=== PATIENT | female | born 1955 | race Caucasian/White ===

== ENCOUNTER 2021-02-28 03:01 | Inpatient (IN) | payer MEDICAID ==
[~2021-02-28] VITALS: Ht 160 cm; Wt 63.5 kg
[2021-02-28] MEDS ORDERED: ONDANSETRON HCL/PF 4 MG/2 ML VIAL ONE (03:23)
[2021-02-28] MEDS ORDERED: MORPHINE SULFATE INJ 4 MG/ML DISP.SYRIN ONE (03:23)
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
[2021-02-28] MEDS ORDERED: MORPHINE SULFATE INJ 2 MG/ML DISP.SYRIN IV ONE (03:30)
[2021-02-28] MEDS ORDERED: IV NS 0.9% 500 ML BAG IV ONE (03:30)
[2021-02-28] MEDS ORDERED: ONDANSETRON HCL/PF 4 MG/2 ML VIAL IVP ONE (03:30)
[2021-02-28] MEDS ORDERED: IV NS 0.9% 250 ML IV ONE (03:53)
[2021-02-28] MEDS ORDERED: IOHEXOL-300 100 ML VIAL IV ONE (03:53)
--- NOTE | 2021-02-28 04:07 | NUR ---
[phone] GRANDSON CALL FOR CUTTER GRIND TOOL TECHNICIAN "PRINCE"
[2021-02-28 04:10] LABS: CALCIUM, SERUM 8.2 mg/dL (8.5-10.1); POTASSIUM 3.6 mmol/L (3.5-5.1)
[2021-02-28 04:25] LABS: ALBUMIN 3.9 g/dL (3.4-5.0); BILIRUBIN,DIRECT 0.1 mg/dL (0.0-0.2); BILIRUBIN,TOTAL 0.3 mg/dL (0.2-1.0)
--- NOTE | 2021-02-28 05:48 | NUR ---
ASHLEY DSOUZA PAGED FOR PANEL
--- NOTE | 2021-02-28 05:58 | NUR ---
MRSA SWAB COLLECTED AND SENT TO LAB. PATIENT'S BELONGINGS LIST DONE.
--- NOTE | 2021-02-28 06:02 | NUR ---
COVID SWAB COLLECTED AND SENT TO LAB
[2021-02-28 07:00] LABS: BASOPHILS # (AUTO) 0.1 K/uL (0.0-0.2); BASOPHILS % (AUTO) 0.6 % (0.0-2.0); EOSINOPHILS % (AUTO) 2.7 % (0.0-6.0); HEMATOCRIT 36 % (33-45); HEMOGLOBIN 11.6 g/dL (11.5-14.8); LYMPHOCYTES % (AUTO) 39.5 % (20.0-44.0); MEAN CORPUSCULAR HGB CONC 33 g/dl (31.0-36.0); MEAN CORPUSCULAR VOLUME 90 fL (82-100); MONOCYTES # (AUTO) 0.8 K/uL (0.1-1.30); MONOCYTES % (AUTO) 7.6 % (2.0-12.0); NEUTROPHILS % (AUTO) 49.6 % (43.0-81.0); PLATELET COUNT (AUTO) 309 K/uL (150-450); RED BLOOD CELL COUNT(AUTO) 3.95 MIL/uL (4.0-5.2); WHITE BLOOD COUNT (AUTO) 10.1 K/uL (4.3-11.0)
[2021-02-28] MEDS ORDERED: ZOLPIDEM TARTRATE 5 MG TABLET PO PRN (07:00)
[2021-02-28] MEDS ORDERED: Z GUARD REMEDY 2 OZ OINT TP PRN (07:00)
[2021-02-28] MEDS ORDERED: ONDANSETRON HCL/PF 4 MG/2 ML VIAL IVP PRN (07:00)
[2021-02-28] MEDS ORDERED: ACETAMINOPHEN 325 MG TABLET PO PRN (07:00)
[2021-02-28 07:46] LABS: BASOPHILS % (AUTO) 0.2 % (0.0-2.0); EOSINOPHILS % (AUTO) 0.2 % (0.0-6.0); HEMATOCRIT 35 % (33-45); HEMOGLOBIN 11.4 g/dL (11.5-14.8); LYMPHOCYTES # (AUTO) 1.2 K/uL (0.8-4.8); LYMPHOCYTES % (AUTO) 7.3 % (20.0-44.0); MEAN CORPUSCULAR HGB CONC 33 g/dl (31.0-36.0); MEAN CORPUSCULAR VOLUME 88 fL (82-100); NEUTROPHILS # (AUTO) 14.3 K/uL (1.8-8.9); NEUTROPHILS % (AUTO) 86.3 % (43.0-81.0); PLATELET COUNT (AUTO) 289 K/uL (150-450); RED BLOOD CELL COUNT(AUTO) 3.92 MIL/uL (4.0-5.2); WHITE BLOOD COUNT (AUTO) 16.6 K/uL (4.3-11.0)
--- NOTE | 2021-02-28 09:17 | NUR ---
GOT BED 320-1
--- NOTE | 2021-02-28 09:27 | NUR ---
REPORT GIVEN TO NURSE RIZVI
--- NOTE | 2021-02-28 09:42 | NUR ---
THE PATIENT IS TRANSFERED TO ASSIGNED ROOM IN STABLE CONDITION AND PER ACLS POLICY.
[2021-02-28 10:00] VITALS: BP 127/72
--- NOTE | 2021-02-28 10:16 | NUR ---
RN NURSE NOTE PATIENT ADMITTED TO ROOM 320-1, PATIENT A/O X4. PATIENT IS ON ROOM AIR, NO RESPIRATORY DISTRESS. PAIN 2/10 BUT, PAIN INCREASE WITH POSITION CHANGE. TELE MONITOR IN PLACE. SKIN ISSUES PRESENT PHOTO TAKEN AND PLACED IN CHART. PATIENT COMFORTABLE IN BED. PATIENT ORIENTED TO THE ROOM, TAUGHT HOW TO USE CALL LIGHT. SAFETY MEASURES IN PLACE, BED IN LOWER POSITION, SIDE RAIL X2, CALL LIGHT WITH IN REACH. WE WILL CONTINUE TO MONITOR
[2021-02-28 12:00] VITALS: BP 122/65
[2021-02-28 16:00] VITALS: BP 125/76
[2021-02-28] MEDS: MORPHINE SULFATE INJ 2 MG/ML DISP.SYRIN IV PRN (16:13)
[2021-02-28 16:30] VITALS: BP 147/94
--- NOTE | 2021-02-28 18:19 | NUR ---
RN CLOSING NOTES PATIENT ADMITTED TO ROOM 320-1, PATIENT A/O X4. PATIENT IS ON ROOM AIR, NO RESPIRATORY DISTRESS. PAIN 2/10 BUT, PAIN INCREASE WITH POSITION CHANGE. TELE MONITOR IN PLACE, SINUS RHYTHM. SKIN ISSUES PRESENT PHOTO TAKEN AND PLACED IN CHART, WOUND CONSULT. PATIENT COMFORTABLE IN BED. PATIENT ORIENTED TO THE ROOM, TAUGHT HOW TO USE CALL LIGHT. SAFETY MEASURES IN PLACE, BED IN LOWER POSITION, SIDE RAIL X2, CALL LIGHT WITH IN REACH. WE WILL CONTINUE TO MONITOR AND ENDORSE TO NEXT SHIFT.
--- NOTE | 2021-02-28 19:37 | NUR ---
PROPERTY ADMINISTRATOR OPENING NOTES: RECEIVED PATIENT AWAKE IN BED, A/OX 4 [place] SPEAKING, BED IN LOW POSITION CALL LIGHTS WITHIN REACH, NO COMPLAIN OF PAIN AND DISCOMFORT AT THIS TIME, PATIENT ON RA NO SOB OR ANY RESP DISTRESS OBSERVED, ON TELE MONITORING SR-75, WITH IV LINE AT LAC#18 SL, DIALYSIS PORT AT [facility] POSITIVE WITH BRUIT, PATIENT IS ABLE TO AMBULATE ON BSC WITH LOBBY CONCIERGE, PATIENT KEPT CLEAN AND DRY, ALL NEEDS MET, WILL CONTINUE TO MONITOR.
[2021-02-28 20:00] VITALS: BP 119/73
[2021-03-01] VITALS: BP 113/60
[2021-03-01 01:13] VITALS: BP 103/61
[2021-03-01 04:00] VITALS: BP 105/60
[2021-03-01 06:35] LABS: BASOPHILS % (AUTO) 0.3 % (0.0-2.0); EOSINOPHILS % (AUTO) 0.8 % (0.0-6.0); HEMATOCRIT 33 % (33-45); HEMOGLOBIN 11.1 g/dL (11.5-14.8); LYMPHOCYTES # (AUTO) 1.3 K/uL (0.8-4.8); LYMPHOCYTES % (AUTO) 16.7 % (20.0-44.0); MEAN CORPUSCULAR HGB CONC 34 g/dl (31.0-36.0); MEAN CORPUSCULAR VOLUME 89 fL (82-100); MONOCYTES # (AUTO) 0.7 K/uL (0.1-1.30); MONOCYTES % (AUTO) 9.1 % (2.0-12.0); NEUTROPHILS # (AUTO) 5.8 K/uL (1.8-8.9); NEUTROPHILS % (AUTO) 73.1 % (43.0-81.0); PLATELET COUNT (AUTO) 275 K/uL (150-450); RED BLOOD CELL COUNT(AUTO) 3.73 MIL/uL (4.0-5.2)
[2021-03-01 06:39] LABS: ALBUMIN 3.4 g/dL (3.4-5.0); BILIRUBIN,TOTAL 0.9 mg/dL (0.2-1.0); CALCIUM, SERUM 8.3 mg/dL (8.5-10.1); CREATININE 0.8 mg/dL (0.6-1.3); MAGNESIUM 2.3 mg/dL (1.8-2.4); PHOSPHORUS 3.6 mg/dL (2.5-4.9); POTASSIUM 4.2 mmol/L (3.5-5.1); TOTAL PROTEIN, SERUM 7.4 g/dL (6.4-8.2)
[2021-03-01] MEDS: MORPHINE SULFATE INJ 2 MG/ML DISP.SYRIN IV PRN (06:39)
[2021-03-01 06:51] LABS: THYROID STIMULATING HORMONE 1.364 uIU/mL (0.358-3.74)
--- NOTE | 2021-03-01 06:51 | NUR ---
PHARMACY ASSISTANT CLOSING NOTES: RECEIVED PATIENT SLEEP IN BED COMFORTABLY, BED IN LOW POSITION,CALL LIGHTS WITHIN REACH, NO COMPLAIN OF PAIN AND DISCOMFORT AT THIS TIME, PATIENT IS A/OX 1 BAHRAINI SPEAKING, AMBULATORY WITH SUPERVISION, ON TELE MONITORING SR-68, WITH IV LINE AT LAC#18 SL ON ROOM AIR AT 97%, PATIENT KEPT CLEAN AND DRY, ALL NEEDS MET, ENDORSE TO INCOMING SHIFT.
--- NOTE | 2021-03-01 07:30 | NUR ---
NIPPLE MACHINE OPERATOR OPENING NOTE RECEIVED PT AWAKE IN BED. A/O X4. PT IS FRENCH-SPEAKING AND ABLE TO UNDERSTAND MINIMAL INDIAN. PT IS ON EXTERNAL GENERAL STORE MANAGER READING SR AT 74BPM. PT IS STABLE ON ROOM AIR WITH NO SOB OR S/S OF RESPIRATORY DISTRESS NOTED. PT HAS NO C/O PAIN OR DISCOMFORT AT THIS TIME. IV ACCESS IS IN LAC #18 SALINE-LOCKED, INTACT AND PATENT. SAFETY PRECAUTIONS MAINTAINED. BED IN LOWEST LOCKED POSITION, HOB ELEVATED, SIDE RAILS UP X2. CALL LIGHT AND TABLE WITHIN REACH. WILL CONTINUE TO MONITOR.
--- NOTE | 2021-03-01 07:37 | NUR ---
WOUND CARE CONSULT: PT SLEEPING SOUNDLY AT THIS TIME. REVIEWED CHART, NURSING DOCUMENTATION AND PHOTOS WHICH INDICATE AREAS OF SKIN DISCOLORATION PRESENT ON ADMISSION. CURRENT BRYCE SCORE IS 21. WILL SEE PT PT CONDITION PERMITS AND PRN.
[2021-03-01 08:12] VITALS: BP 105/50
[2021-03-01 16:39] VITALS: BP 130/78
--- NOTE | 2021-03-01 18:26 | NUR ---
MS RN CLOSING NOTE PT IS AWAKE IN BED. A/O X4. PT IS KOSOVAN-SPEAKING AND ABLE TO UNDERSTAND MINIMAL SYRIAC. PT IS STABLE ON ROOM AIR WITH NO SOB OR S/S OF RESPIRATORY DISTRESS NOTED. PT HAS NO C/O PAIN OR DISCOMFORT AT THIS TIME. IV ACCESS IS IN LAC #18 SALINE-LOCKED, INTACT AND PATENT. ALL NEEDS HAVE BEEN MET. SAFETY PRECAUTIONS MAINTAINED AT ALL TIMES. BED IN LOWEST LOCKED POSITION, HOB ELEVATED, SIDE RAILS UP X2. CALL LIGHT AND TABLE WITHIN REACH. WILL ENDORSE TO ONCOMING NURSE FOR ARACELIS.
--- NOTE | 2021-03-01 19:10 | NUR ---
MS RN OPENING NOTES: RECEIVED PATIENT IN BED, AWAKE, A/O X4. NO S/S OF DISTRESS NOTED. NO COMPLAIN OF PAIN. CALL LIGHT WITHIN REACH. BED IN LOWEST AND LOCKED POSITION. BED ALARM ON. PATIENT REFUSED TO DO THE INCENTIVE SPIROMETER AT THE BEDSIDE DUE TO PAIN EVERY TIME SHE DO IT.
[2021-03-01 19:47] VITALS: BP 136/75
[2021-03-02 06:24] LABS: BASOPHILS % (AUTO) 0.5 % (0.0-2.0); EOSINOPHILS % (AUTO) 2.2 % (0.0-6.0); HEMATOCRIT 33 % (33-45); HEMOGLOBIN 11.2 g/dL (11.5-14.8); LYMPHOCYTES # (AUTO) 1.9 K/uL (0.8-4.8); LYMPHOCYTES % (AUTO) 22.4 % (20.0-44.0); MEAN CORPUSCULAR HGB CONC 34 g/dl (31.0-36.0); MEAN CORPUSCULAR VOLUME 88 fL (82-100); MONOCYTES # (AUTO) 0.9 K/uL (0.1-1.30); MONOCYTES % (AUTO) 10.4 % (2.0-12.0); NEUTROPHILS # (AUTO) 5.4 K/uL (1.8-8.9); NEUTROPHILS % (AUTO) 64.5 % (43.0-81.0); PLATELET COUNT (AUTO) 274 K/uL (150-450); RED BLOOD CELL COUNT(AUTO) 3.76 MIL/uL (4.0-5.2); WHITE BLOOD COUNT (AUTO) 8.4 K/uL (4.3-11.0)
[2021-03-02 07:28] LABS: CALCIUM, SERUM 8.7 mg/dL (8.5-10.1); CREATININE 0.8 mg/dL (0.6-1.3); POTASSIUM 4.8 mmol/L (3.5-5.1)
--- NOTE | 2021-03-02 07:32 | NUR ---
MS RN OPENING NOTE RECEIVED PT AWAKE IN BED. A/O X4. PT IS INDIAN-SPEAKING AND ABLE TO UNDERSTAND MINIMAL FRISIAN. PT IS STABLE ON ROOM AIR WITH NO SOB OR S/S OF RESPIRATORY DISTRESS NOTED. PT HAS NO C/O PAIN OR DISCOMFORT AT THIS TIME. IV ACCESS IS IN LAC #18 SALINE-LOCKED, INTACT AND PATENT. SAFETY PRECAUTIONS MAINTAINED. BED IN LOWEST LOCKED POSITION, HOB ELEVATED, SIDE RAILS UP X2. CALL LIGHT AND TABLE WITHIN REACH. WILL CONTINUE TO MONITOR.
[2021-03-02 08:00] VITALS: BP 114/64
--- NOTE | 2021-03-02 12:27 | NUR ---
TRANSFERRED PT AND GAVE BEDSIDE REPORT TO MARISSA BRUMFIELD FOR ARACELIS.
--- NOTE | 2021-03-02 12:28 | NUR ---
RN NOTES BEDSIDE ENDORSEMENT RECEIVED FROM MARISSA TOVAR.
[2021-03-02] MEDS ORDERED: FUROSEMIDE 20 MG TABLET PO ONE (13:00)
[2021-03-02] MEDS ORDERED: AZIT250T13 PO (13:35)
--- NOTE | 2021-03-02 13:45 | NUR ---
RN NOTES SPOKE W/ ROSE MARX NP, ABOUT PATIENT'S PREFERRED PHARMACY AND LASIX ORDER X1, NOTED.
[2021-03-02] MEDS: MORPHINE SULFATE INJ 2 MG/ML DISP.SYRIN IV PRN (15:25)
[2021-03-02 16:05] VITALS: BP 126/73
--- NOTE | 2021-03-02 18:00 | NUR ---
RN NOTES PATIENT SEEN BY ROSE MARX NP, TODAY W/ ORDER FOR DISCHARGE TO HOME. DISCHARGE INSTRUCTION AND EDUCATION PROVIDED TO PATIENT AND VERBALIZED UNDERSTANDING VIA PARAGUAYAN-SPEAKING FAMILY WHO TRANSLATED AT BEDSIDE. DISCHARGE FORM AND BELONGINGS LIST FORM SIGNED BY PATIENT AND ALL BELONGINGS ACCOUNTED FOR. NAME ARMBAND AND IV LINE REMOVED, NO BLEEDING NOTED. NO SKIN ISSUES. PATIENT WAS ACCOMPANIED TO THE [facility] VIA WHEELCHAIR BY FLOOR TECH AND PICKED UP BY NICOLA MARR. CHARGE NURSE AND MD AWARE OF DISCHARGE.
== END 2021-03-02 17:50 | disposition home or self-care (01) | DRG 135 ==
LOC: ER 03:05 → TELE 09:23 → MED 03-01 11:12
PROVIDERS: ADMIT Hospitalist; ATTEND Registered Nurse
DX: S22.42XA Multiple fractures of ribs, left side, initial encounter for closed fracture (principal); S09.90XA Unspecified injury of head, initial encounter; Z20.822 Contact with and (suspected) exposure to COVID-19; V49.50XA Passenger injured in collision with unspecified motor vehicles in traffic accident, initial encounter; Y92.410 Unspecified street and highway as the place of occurrence of the external cause; Z90.49 Acquired absence of other specified parts of digestive tract; K44.9 Diaphragmatic hernia without obstruction or gangrene; K57.30 Diverticulosis of large intestine without perforation or abscess without bleeding; D72.829 Elevated white blood cell count, unspecified; E87.70 Fluid overload, unspecified; R09.1 Pleurisy
CPT/HCPCS: 36415; 70450-TC; 71045-TC; 71100-TC; 71250-TC; 72125-TC; 72170-TC; 73030-TC; 80048-TC; 80053-TC; 80061-TC; 80076-TC; 83735-TC; 84100-TC; 84443-TC; 84484-TC; 85025-TC; 85730-TC; 87081-TC; C9803; G0378; J2270; J2405; J7040; J7050; Q9967